=== PATIENT | female | born 1990 | race African-American/Black ===

== ENCOUNTER 2017-05-20 06:50 | Inpatient (IN) | payer OTHER ==
[2017-05-20] MEDS ORDERED: ELECTROLYTE-148 SOLN 500 ML IV ONE (07:24)
[2017-05-20] MEDS ORDERED: CITRIC ACID/SODIUM CITRATE 30 ML UNIT-DOSE CUP PO ONE (07:24)
[2017-05-20] MEDS ORDERED: ELECTROLYTE-148 SOLN 1,000 ML IV SCH (07:30)
--- NOTE | 2017-05-20 07:38 | HP ---
Past Medical History - Primary Care Physician PCP:: Karen Simmons - Admission Chief Complaint: 26 yrs , 39.2/7 weeks, previous c/sx2 , admitted for repeat c/section History of Present Illness: care at [address] [place] [address] , late registrant .No wt gain during , pt states she lost 30 lbs . only 5 visits .pnc. work up : AB Pos , Rubella immune, Hbsag neg, Rpr nr, Hiv neg,! Hr Gtt 99,Sickle neg , GC/CT neg GBS neg . NT screen & AFP not done serial sono for growth were done by [facility], reviewed . History Source: Patient, Medical Record Limitations to Obtaining History: No Limitations - Past Medical History CURATOR OF MANUSCRIPTS: No: Migraine, Seizure Cardiovascular: Yes: HTN (h/o preclempsia in 10/2008 ) Pulmonary: Yes: Asthma (rx inhaler), Pulmonary Embolus (h/o PE during last 06/2014 ,early 1st or 2 nd trimester , she was placed on Lovenox during whole . She had pregn , delivery at [facility]) Gastrointestinal: No: Gastritis, GERD Hepatobiliary: No: Hepatitis B ...: 5 ...Para: 2 ...Term: 1 (07/07/2014 rpeat c/section 8'4' [facility] ,pregn complicated by PE , rx lovenox whole pregn ) ...: 1 (11/14/2008 ,1'7" 28 weeks preclempsia , IUGR, , [place], at [facility] ) ...Spon : 0 ...Induced : 2 ...LMP: 09/02/16 ...EDC by Dates: 06/09/17 ...EDC by Sono: 05/25/17 (39.2 weeks by sono ) Heme/Onc: Yes: Anemia Infectious Disease: No: HIV, STD's Psych: No: Addictions, Anxiety, Bipolar, Depression Endocrine: No: Diabetes Mellitus, Hypothyroidism - Past Surgical History Past Surgical History: Yes: (10/2008, & 06/2014) Hx Myomectomy: No Hx Transabdominal Cerclage: No - Smoking History Smoking history: Never smoked Have you smoked in the past 12 months: No - Alcohol/Substance Use Hx Alcohol Use: No History of Substance Use: reports: None Home Medications - Allergies Allergies/Adverse Reactions: Allergies Allergy/AdvReac Type Severity Reaction Status Date / Time No Known Allergies Allergy Verified 05/20/17 07:49 - Home Medications Home Medications: Ambulatory Orders Albuterol 0.083% Nebulizer Helen [Ventolin 0.083% Nebulizer Soln -] 1 neb NEB Q4H PRN 04/29/17 Albuterol Sulfate Inhaler - [Ventolin Hfa Inhaler -] 1 - 2 inh PO PRN PRN Vit/Iron Fumarate/FA [ Tablet] 1 each PO DAILY 05/20/17 Physical Exam - Maternity Vital Signs: Selected Entries 05/20/17 07:49 Weight 290 lb Constitutional: Yes: Well Nourished, Obese Eyes: Yes: WNL HENT: Yes: WNL, Normocephalic Neck: Yes: WNL Cardiovascular: Yes: WNL, Regular Rate and Rhythm Lungs: Clear to auscultation Breast(s): Yes: WNL - Abdominal Exam/OB Fundal Height: 40 Number of Fetuses: Single Presentation: Vertex Contractions: Yes Regularity: Irregular Intensity: Unaware Monitor Mode: External Heart Rate (range): 130 Heart Rate Location: [facility] Category: I Accelerations: Uniform - Vaginal Exam/OB Vaginal Bleediing: No Speculum Exam: No Dilatation (cm): close Effacement (%): unefface Amniotic Membrane Status: Intact Presentation: Vertex/Position Station: -3 - Physical Exam Musculoskeletal: Yes: WNL Extremities: No: Calf Tenderness Edema: Yes Edema: LLE: 1+, RLE: 1+ Integumentary: Yes: Incision (pfannensteil scar), Tattoos Deep Tendon Reflex Grade: Normal +2 ...Motor Strength: WNL Psychiatric: Yes: WNL, Alert, Oriented Problem List - Problems (1) with 39 completed weeks gestation Code(s): Z3A.39 - 39 WEEKS GESTATION OF (2) Previous section complicating Code(s): O34.219 - MATERNAL CARE FOR UNSP TYPE SCAR FROM PREVIOUS DEL (3) Morbid obesity with BMI of 45.0-49.9, adult Code(s): E66.01 - MORBID (SEVERE) OBESITY DUE TO EXCESS CALORIES Z68.42 - BODY MASS INDEX (BMI) 45.0-49.9, ADULT (4) H/O extrinsic asthma Code(s): Z87.09 - PERSONAL HISTORY OF OTHER DISEASES OF THE RESPIRATORY SYSTEM Assessment/Plan 26 yrs , 39.2 weeks , previous c/s x2 ,Morbid obesty , h/o PE in past, requests repeat c/section
[2017-05-20 08:50] VITALS: BMI 53.0
[2017-05-20] MEDS ORDERED: ENOXAPARIN NA (PORCINE) 40 MG/0.4 ML DISP.SYRIN SQ SCH (10:00)
[2017-05-20 10:58] LABS: URINE MARIJUANA THC NEGATIVE ng/ml (CUTOFF=50)
[2017-05-20] MEDS ORDERED: ONDANSETRON 4 MG/2 ML VIAL IVPB PRN (11:50)
[2017-05-20] MEDS ORDERED: IBUPROFEN 800 MG/8 ML IJ IVPB PRN (12:27)
[2017-05-20] MEDS ORDERED: METHYLERGONOVINE MALEATE 0.2 MG/1 ML AMP IM PRN (12:27)
[2017-05-20] MEDS ORDERED: ceFAZolin 2 GRAM PREMIX BAG IVPB SCH (12:30)
--- NOTE | 2017-05-20 12:43 | PN ---
Delivery - Delivery Section: Repeat, Low Flap Transverse (lysis of adhesions Indication : 39 weeks, previous c/section x2 , morbid obesiity) Type of Anesthesia: Spinal Episiotomy/Laceration: None EBL (cc): 650 (ovalle output 200 ml pastora color ) Delivery, Single - Stages of Labor Date of Delivery: 05/20/17 Time of Delivery: 11:26 Time Placenta Delivered: 11:27 Placenta: Yes: Manual Removal, Uterine Exploration - Condition of Personal Injury Law Specialist/Plastic Sheets Finishing Supervisor Present: Yes Name: Nila Fregoso Gender: Male Weight: 7 lb 13 oz Position: Left, OT Total Hours ROM (Hrs/Mins): 0/2 - 1 Minute Total Score: 9 5 Minutes Total Score: 9 - [place] Feeding Plan Initial Plan: Elected not to breastfeed exclusively throughout hospitalization Remarks - Remarks Remarks: 26 yrs , 39 weeks iup, , previousc/sx2 admitted for repeat c/s PNC at [address] [place] [address] gbs neg Intraop adhesions on rt side of uterus to right lateral abdominal wall is noted it could not be seprated No peritoneum layer found, lysisi adhesions were done
--- NOTE | 2017-05-20 12:49 | OP ---
Operative Note - Note: Operative Date: 05/20/17 Pre-Operative Diagnosis: 39 weeks, previous c/section x2, morbid obesity Operation: repeat LFTC/section Findings: 11.26 am , baby boy, vx LOT , 9/9 , Wt 7'11" tubes & ovaries could not be inspected rt side utreus adhernt to abd wall firmly, no lysis was done . Dr Fregoso present in OR Post-Operative Diagnosis: Other (uteroabd wall adhesions) Surgeon: Karen Simmons Student Driving Instructor: Marcos Yao Anesthesiologist/RETAIL PHARMACY MANAGER: Dayanara Gonzalez Anesthesia: Spinal Specimens Removed: placenta. cord blood Estimated Blood Loss (mls): 650 Drains, Volume Out (mls): 200 Fluid Volume Replaced (mls): 1,800 (2 gm iv ancef preop given )
[2017-05-20] MEDS: ACETAMINOPHEN 1000 MG/100 ML VIAL (NON FORMULARY) IVPB PRN (13:00)
[2017-05-20] MEDS ORDERED: CEFAZOLIN 2 GM/D5W 50 ML IVPB SCH (13:00)
[2017-05-20] MEDS: ENOXAPARIN NA (PORCINE) 40 MG/0.4 ML DISP.SYRIN SQ SCH (17:55)
[2017-05-20] MEDS: CEFAZOLIN 2 GM/D5W 50 ML IVPB SCH (19:33)
[2017-05-20] MEDS: OXYTOCIN 20 UNITS in 0.9% NS 1,000 ML IV SCH (19:34)
[2017-05-20] MEDS ORDERED: SENNOSIDES/DOCUSATE COMBO (SENNA PLUS) TABLET (UD) PO PRN (22:00)
[2017-05-21] MEDS: CEFAZOLIN 2 GM/D5W 50 ML IVPB SCH ×2 (03:19→10:43)
[2017-05-21] MEDS: OXYTOCIN 20 UNITS in 0.9% NS 1,000 ML IV SCH (04:07)
--- NOTE | 2017-05-21 05:26 | PN ---
Post Progress Note - Subjective Subjective: resting in bed, minimal [pain Type of Delivery: Repeat C/S Vital Signs: Vital Signs Temperature 99 F 05/21/17 02:22 Pulse Rate 87 05/21/17 02:22 Respiratory Rate 19 05/21/17 04:00 Blood Pressure 119/68 05/21/17 02:22 O2 Sat by Pulse Oximetry (%) 98 05/21/17 02:00 Breast Exam: Yes: Soft Uterus: Yes: Fundus Firm Abdomen/GI: Yes: Abdomen soft Lochia: Yes: Rubra Lochia, amount: Small Extremities: Yes: Calves non-tender Perineum: Yes: Intact Activity: Ambulating Assessment/Plan oob reg diet pain meds check labs today
[2017-05-21] MEDS: ACETAMINOPHEN 1000 MG/100 ML VIAL (NON FORMULARY) IVPB PRN (05:51)
[2017-05-21] MEDS: ENOXAPARIN NA (PORCINE) 40 MG/0.4 ML DISP.SYRIN SQ SCH ×2 (06:05→17:17)
--- NOTE | 2017-05-21 07:06 | OP ---
DATE OF OPERATION: 05/20/2017 PREOPERATIVE DIAGNOSIS: A 39-week , previous section x2, morbid obesity. OPERATION DONE: A repeat low flap transverse section. POSTOPERATIVE DIAGNOSIS: A 39-week , previous section x2, morbid obesity, uteroabdominal wall adhesions on the right side. SURGEON: Karen Simmons MD SPECIAL EFFECTS PERSON SURGEON: DAYANA Perrin ANESTHESIOLOGIST: Dayanara Gonzalez MD ANESTHESIA: Spinal. FINDINGS: This is a 26-year-old 5 para 1-1-2-2 at 39 weeks . She had previous C-sections x2 done at [facility], and she has history of a PE during her last . Patient not in labor. [id number] pounds, BMI 53. PROCEDURE: Abdomen was shaved, prepped. Hardy catheter was placed. She was taken to the operating room table. Spinal anesthesia was given. She was placed in supine positon. Abdomen was painted and draped in usual manner. Before abdominal preparation, panniculus of abdomen was pulled back upwards with the tape to facilitate the surgery. The abdomen was prepped, then draped. Pfannenstiel incision was made through previous scar. The skin and subcutaneous tissue were entered. Anterior rectus sheath was incised transversely. Bleeding points were clamped. The rectus muscle was from the rectus sheath. Parietal peritoneum could not be identified, and there were adhesions through the uterine cavity. The abdominal cavity was entered by lysing the adhesions on the right side of the abdominal wall and the uterus about from the mid portion to the lower segment, was adherent and complete to the right abdominal wall very thick adhesions. So, I could not separate it. The lower uterine segment was identified. There was no definite bladder peritoneum , so, bladder was pushed down, and the lower uterine segment was incised transversely. The amniotic fluid was clear. The baby was delivered from LOT position, baby boy at 11:26 a.m., was 9, 9. Babys weight was 7 pounds 11 ounces. Cord was clamped, cut, and baby was handed over to Dr. Kohler, the wardrobe custodian present in the room. Placenta was removed completely with the membranes. Then, uterine cavity was cleaned, and the uterine incision was closed in 2 layers. The first layer was closed with a Biosyn 0 suture, continuous locking sutures were taken, second layer was a Biosyn 0 suture, continuous intermittently locking sutures were taken. Hemostasis was verified. Because of the adhesions, both the size of tubes and ovaries could not be identified. Also, before entering the uterine incision to ensure the good exposure, the rectus muscle on both sides was resected laterally. So, now, since parietal peritoneum was not identified, the rectus muscle was reapproximated together with Biosyn 0 suture, and the abdominal cavity was closed. Before that, the sponge, instrument, and needle counts were correct. Below the rectus sheath, hemostasis was checked. Anterior rectus sheath was closed with Vicryl suture. Hemostasis was checked. The subcutaneous tissue was approximated with Biosyn 0 suture. Hemostasis was checked, and then, the skin was approximated with jessica. Pressure dressing was given. Blood clots were removed from the vagina. Estimated blood loss was 650 mL. Urine output was 200 mL and it was clear and pastora colored. She received 2 g of IV Ancef prior to the incision. She was sent to the recovery room in stable condition. Since she has history of a PE, she will be given Lovenox 40 mg p.o. b.i.d. starting at 6:00 p.m. Estefania [id number] MTDD
[2017-05-21 07:57] LABS: BASOPHIL 0.7 % (0-2.0); EOSINOPHIL 1.1 % (0-4.5); MCH 25.3 pg (25.7-33.7); MCHC 32.9 g/dl (32.0-36.0); MEAN CELL VOLUME 76.9 fl (80-96); MEAN PLT VOLUME 9.3 fl (7.5-11.1); NEUTROPHILS 71.9 % (42.8-82.8); PLATELET COUNT 187 K/MM3 (134-434); RDW 14.9 % (11.6-15.6); WHITE BLOOD COUNT 12.8 K/mm3 (4.0-10.0)
--- NOTE | 2017-05-21 09:16 | PN ---
Progress Note, Physician Chief Complaint: Pt. ovalle out, has not voided yet, no BURNS. Pain controlled. - Current Medication List Current Medications: Active Medications Bisacodyl (Dulcolax Suppository -) 10 mg RC PRN PRN PRN Reason: CONSTIPATION Diphenhydramine HCl (Benadryl Injection -) 25 mg IVPUSH Q4H PRN PRN Reason: Pruritis Last Admin: 05/20/17 22:00 Dose: 25 mg Diphtheria/Tetanus/Acell Pertussis (Boostrix -) 0.5 ml IM .ONCE ONE Stop: 05/21/17 10:01 Enoxaparin Sodium (Lovenox -) 40 mg SQ Q12H [facility] Last Admin: 05/21/17 06:05 Dose: 40 mg Ferrous Sulfate (Feosol -) 325 mg PO BID [facility] Oxytocin/Sodium Chloride (Normal Saline+20 Units Oxytocin -) 1,000 mls @ 125 mls/hr IV ASDIR [facility] Last Admin: 05/21/17 04:07 Dose: 125 mls/hr Cefazolin Sodium/Dextrose (Ancef 2 Gm Premixed Ivpb -) 50 mls @ 100 mls/hr IVPB Q8H XU PRN Reason: Protocol Stop: 05/21/17 18:59 Last Admin: 05/21/17 03:19 Dose: 100 mls/hr Ibuprofen (Motrin -) 600 mg PO Q4H PRN PRN Reason: PAIN Ibuprofen (Caldolor Injection -) 800 mg IVPB Q8H PRN PRN Reason: PAIN OR FEVER Methylergonovine Maleate (Methergine Injection -) 0.2 mg IM Q4H PRN PRN Reason: Excessive Bleeding (L&D) Oxycodone HCl (Roxicodone -) 5 mg PO Q4H PRN PRN Reason: PAIN LEVEL 1-5 Oxycodone HCl (Roxicodone -) 10 mg PO Q4H PRN PRN Reason: PAIN LEVEL 6-10 Multivit/Folic Acid/Iron ( Vitamins (Sjr) -) 1 tab PO DAILY [facility] Senna/Docusate Sodium (Pericolace -) 2 tablet PO HS PRN PRN Reason: CONSTIPATION Simethicone (Mylicon -) 80 mg PO Q4H PRN PRN Reason: GAS - Objective Vital Signs: Vital Signs Temperature 99.0 F 05/21/17 06:09 Pulse Rate 88 05/21/17 06:09 Respiratory Rate 18 05/21/17 06:09 Blood Pressure 120/66 05/21/17 06:09 O2 Sat by Pulse Oximetry (%) 98 05/21/17 05:28 Constitutional: Yes: Well Nourished, No Distress, Calm Musculoskeletal: Yes: WNL Neurological: Yes: WNL, Alert, Oriented ...Motor Strength: WNL Labs: CBC, BMP 05/21/17 07:30 Assessment/Plan POD#1 s/p repeat under spinal with DM. Doing well. D/C from anesthesia care once she voids.
[2017-05-21] MEDS ORDERED: DIPHTH,PERTUSS(ACELL),TET 0.5 ML DISP.SYRIN IM ONE (10:00)
[2017-05-21] MEDS: PRENATAL VITAMINS W/ FOLIC ACID TABLET (FP) PO SCH (10:50)
[2017-05-21] MEDS ORDERED: BISACODYL 10 MG SUPP.RECT RC PRN (12:27)
[2017-05-21] MEDS: IBUPROFEN 600 MG TABLET (FP) PO PRN (12:59)
[2017-05-21] MEDS: SIMETHICONE 80 MG TAB.CHEW (FP) PO PRN ×3 (13:01→23:24)
[2017-05-21] MEDS: ACETAMINOPHEN 325 MG TABLET (FP) PO PRN ×3 (13:01→23:24)
[2017-05-21] MEDS: oxyCODONE HCL 5 MG TABLET PO PRN ×3 (14:02→23:24)
[2017-05-21] MEDS: FERROUS SO4 325 MG TABLET (FP) PO SCH (22:05)
[2017-05-22] MEDS: SIMETHICONE 80 MG TAB.CHEW (FP) PO PRN ×5 (03:15→23:56)
[2017-05-22] MEDS: oxyCODONE HCL 5 MG TABLET PO PRN ×4 (03:15→21:02)
[2017-05-22] MEDS: ACETAMINOPHEN 325 MG TABLET (FP) PO PRN ×5 (03:15→23:57)
[2017-05-22] MEDS: ENOXAPARIN NA (PORCINE) 40 MG/0.4 ML DISP.SYRIN SQ SCH ×2 (06:13→18:46)
--- NOTE | 2017-05-22 07:36 | PN ---
Post Progress Note - Subjective Subjective: c/o gaseous discomfort pain scale 6/10 Post Day: 2 Type of Delivery: Repeat C/S Vital Signs: Vital Signs Temperature 98.2 F 05/21/17 22:00 Pulse Rate 103 H 05/21/17 22:00 Respiratory Rate 20 05/21/17 22:00 Blood Pressure 115/66 05/21/17 22:00 O2 Sat by Pulse Oximetry (%) 98 05/21/17 05:28 Breast Exam: Yes: Soft, Other (BF ). No: Engorged Uterus: Yes: Fundus Firm, Fundus below umbilicus Incision: Yes: Dressing dry and intact (robbin changed ). No: Redness, Oozing Abdomen/GI: Yes: Abdomen soft, Abdominal Distention (obese abdomen . bsactive , no cva tenderness ), Passing flatus (bm not done ), Tolerating PO (diet ). No: Tender Lochia: Yes: Rubra Lochia, amount: Moderate Extremities: Yes: Calves non-tender Perineum: Yes: Intact Activity: Ambulating - Labs Labs: CBC WBC 12.8 K/mm3 (4.0-10.0) H 05/21/17 07:30 RBC 3.81 M/mm3 (3.60-5.2) 05/21/17 07:30 Hgb 9.6 GM/dL (10.7-15.3) L D 05/21/17 07:30 Hct 29.3 % (32.4-45.2) L 05/21/17 07:30 MCV 76.9 fl (80-96) L 05/21/17 07:30 MCHC 32.9 g/dl (32.0-36.0) 05/21/17 07:30 RDW 14.9 % (11.6-15.6) 05/21/17 07:30 Plt Count 187 K/MM3 (134-434) 05/21/17 07:30 MPV 9.3 fl (7.5-11.1) 05/21/17 07:30 Neutrophils % 71.9 % (42.8-82.8) 05/21/17 07:30 Lymphocytes % 19.4 % (8-40) 05/21/17 07:30 Monocytes % 6.9 % (3.8-10.2) 05/21/17 07:30 Eosinophils % 1.1 % (0-4.5) 05/21/17 07:30 Basophils % 0.7 % (0-2.0) 05/21/17 07:30 Other Findings, Remarks: Rs cta , no wheezing Problem List - Problems (1) with 39 completed weeks gestation Code(s): Z3A.39 - 39 WEEKS GESTATION OF (2) Previous section complicating Code(s): O34.219 - MATERNAL CARE FOR UNSP TYPE SCAR FROM PREVIOUS DEL (3) Morbid obesity with BMI of 45.0-49.9, adult Code(s): E66.01 - MORBID (SEVERE) OBESITY DUE TO EXCESS CALORIES Z68.42 - BODY MASS INDEX (BMI) 45.0-49.9, ADULT (4) H/O extrinsic asthma Code(s): Z87.09 - PERSONAL HISTORY OF OTHER DISEASES OF THE RESPIRATORY SYSTEM Assessment/Plan anemia , pos t c/section, morbid obesity plan pt requests for discharge tomorrow encourage ambulation, po fluids, deep breathing dulcolax suppository pr repeat today.
[2017-05-22] MEDS: FERROUS SO4 325 MG TABLET (FP) PO SCH ×3 (09:36→21:23)
[2017-05-22] MEDS: PRENATAL VITAMINS W/ FOLIC ACID TABLET (FP) PO SCH (09:36)
[2017-05-22] MEDS: IBUPROFEN 600 MG TABLET (FP) PO PRN ×3 (13:42→23:56)
[2017-05-23] MEDS: SIMETHICONE 80 MG TAB.CHEW (FP) PO PRN ×2 (04:39→08:43)
[2017-05-23] MEDS: IBUPROFEN 600 MG TABLET (FP) PO PRN ×2 (04:40→08:44)
[2017-05-23] MEDS: ACETAMINOPHEN 325 MG TABLET (FP) PO PRN ×2 (04:40→08:44)
[2017-05-23] MEDS: ENOXAPARIN NA (PORCINE) 40 MG/0.4 ML DISP.SYRIN SQ SCH (05:55)
[2017-05-23 07:48] LABS: BASOPHIL 0.7 % (0-2.0); EOSINOPHIL 7.9 % (0-4.5); MCH 25.5 pg (25.7-33.7); MCHC 33.1 g/dl (32.0-36.0); MEAN CELL VOLUME 77.1 fl (80-96); MEAN PLT VOLUME 9.8 fl (7.5-11.1); NEUTROPHILS 64.7 % (42.8-82.8); PLATELET COUNT 198 K/MM3 (134-434); RDW 15.3 % (11.6-15.6); WHITE BLOOD COUNT 10.1 K/mm3 (4.0-10.0)
[2017-05-23] MEDS: oxyCODONE HCL 5 MG TABLET PO PRN (08:43)
[2017-05-23 09:01] VITALS: BP 118/42; PULSE 91; TEMP 98.2
[2017-05-23] MEDS: PRENATAL VITAMINS W/ FOLIC ACID TABLET (FP) PO SCH (09:08)
[2017-05-23] MEDS: FERROUS SO4 325 MG TABLET (FP) PO SCH (09:08)
--- NOTE | 2017-05-23 09:46 | DS ---
Physical Exam-GREETING CARD WRITER Vital Signs: Vital Signs Temperature 98.2 F 05/23/17 08:59 Pulse Rate 91 H 05/23/17 08:59 Respiratory Rate 20 05/23/17 08:59 Blood Pressure 118/42 05/23/17 08:59 O2 Sat by Pulse Oximetry (%) 98 05/21/17 05:28 Constitutional: Yes: Well Nourished Eyes: Yes: Conjunctiva Clear HENT: Yes: Atraumatic Neck: Yes: Supple, Trachea Midline Cardiovascular: Yes: Regular Rate and Rhythm Respiratory: Yes: Regular, CTA Bilaterally Gastrointestinal: Yes: Normal Bowel Sounds ...Rectal Exam: Yes: WNL Renal/: Yes: WNL Pelvis: Yes: WNL External Genitalia: Yes: Normal Vaginal Exam: Yes: Normal Cervix: Yes: Normal Uterus: Yes: Firm Wound/Incision: Yes: [place] Intact Neurological: Yes: Alert, Oriented ...Motor Strength: WNL Psychiatric: Yes: Alert, Oriented Labs: CBC, BMP 05/23/17 06:00 Delivery - Delivery Section: Repeat, Low Flap Transverse (lysis of adhesions Indication : 39 weeks, previous c/section x2 , morbid obesiity) Type of Anesthesia: Spinal Episiotomy/Laceration: None EBL (cc): 650 (ovalle output 200 ml pastora color ) Delivery, Single - Stages of Labor Date of Delivery: 05/20/17 Time of Delivery: 11:26 Time Placenta Delivered: 11:27 Placenta: Yes: Manual Removal, Uterine Exploration - Condition of Infant Drug Abuse Counselor/Snow Blower Present: Yes Name: Nila Fregoso Gender: Male Weight: 7 lb 13 oz Position: Left, OT Total Hours ROM (Hrs/Mins): 0/2 - 1 Minute Total Score: 9 5 Minutes Total Score: 9 - Feeding Plan Initial Plan: Elected not to breastfeed exclusively throughout hospitalization Discharge Summary Reason For Visit: Current Active Problems Anemia (Acute) Delivery by (planned) section occurring after 37 completed weeks of gestation but before 39 completed weeks gestation due to (spontaneous) onset of labor, with mention of complication (Acute) H/O extrinsic asthma (Acute) Morbid obesity with BMI of 45.0-49.9, adult (Acute) with 39 completed weeks gestation (Acute) Previous section complicating (Acute) Procedures: Principal: Repeat Low Transverse Hospital Course: Routine Post op care Condition: Stable - Instructions Diet, Activity, Other Instructions: Post Instructions DIET: Continue good diet high in protein, calcium, and iron rich foods. Drink at least eight (8) glasses of water daily in addition to other fluids. ct LoCarb/Low Calorie Diet MEDICATIONS: Continue vitamins and iron as previously directed. Motrin and Tylenol may be taken for minor discomfort. ACTIVITY: Mild to moderate exercise may be started in two (2) weeks. Take frequent rest periods. Resume normal activity after six (6) week check up. WOUND CARE OF OPERATIVE SITE: Continue use of perineal bottle until vaginal discharge stops. Keep area clean. Shower daily. Keep abdominal wound dry. Report any drainage or redness to physician. Tub baths, tampons and douches are not permitted for [address] Breast feeding & or Bottle feeding BREAST CARE: (For those that are not breast feeding): If engorgement occurs: Wear tight fitting bra. Take Tylenol or Motrin for pain. Apply cold packs (ice in bags to each breast ) FAMILY PLANNING: There are many control alternatives to pursue and they should be discussed at your first office visit. You may resume sexual activity after your six (6) week check up. (Remember, breast feeding is not a contraceptive) NEXT PHYSICIAN APPOINTMENT: Be certain to call for a one (1) week appointment, unless otherwise directed. [facility] Saturday05/28/17 for jessica removal with Dr Simmons Call Clinic or got to Emergency Dept if you have any of the following: Heavy vaginal bleeding Painful urination Leg pain Unusual odor noted to vaginal bleeding High fever Red streaking noted on breast call [facility] for appointment. [phone] Referrals: Karen Simmons MD [Staff Physician] - Disposition: HOME - Home Medications Comprehensive Discharge Medication List: Ambulatory Orders Albuterol 0.083% Nebulizer Helen [Ventolin 0.083% Nebulizer Soln -] 1 neb NEB Q4H PRN 04/29/17 Albuterol Sulfate Inhaler - [Ventolin HFA Inhaler -] 1 - 2 inh PO PRN PRN Vit/Iron Fumarate/FA [ Tablet] 1 each PO DAILY 05/20/17 Acetaminophen [Tylenol .Regular Strength -] 500 mg PO Q4H PRN #30 tablet Ferrous Sulfate [Feosol] 325 mg PO BID #60 tab 05/22/17 Ibuprofen [Motrin -] 600 mg PO Q4H PRN #30 tablet 05/22/17 Vitamins (Sjr) - 1 tab PO DAILY tablet 05/22/17
--- NOTE | 2017-05-27 13:39 | PATH ---
Surgical Pathology Report Patient Name: ESTEBAN WOLF Med. Rec. #: [id number] /Age/Gender: 1990 (Age: 26) / F Account: [id number] Location: [facility] OBS/TRANSFER PROFESSOR Taken: 05/20/2017 Received: 05/22/2017 Reported: 05/27/2017 Physicians: Karen Simmons M.D. Specimen(s) Received PLACENTA Clinical History , 39.2 weeks, c/section x2 Repeat c/section Final Diagnosis PLACENTA, DELIVERY: FOCALLY DISRUPTED THIRD TRIMESTER PLACENTA WITH MODERATE PREVILLOUS, PERIVILLOUS, AND PRECHORIONIC FIBRIN DEPOSITION, FOCAL CALCIFICATIONS, THREE VESSEL UMBILICAL CORD, AND PLACENTAL MEMBRANES FOCAL EARLY ACUTE CHORIOAMNIONITIS. Electronically Signed Robert Sanches M.D. Gross Description The specimen is received fresh, labeled "placenta" and is a 528 gram, 18.0 x 16.5 x 3.0 cm placenta with attached membranes and umbilical cord. The attached membranes are brennan, translucent with focal opacities and insert marginally. The umbilical cord measures 34 cm in length and averages 1.2 cm in diameter. The cord inserts eccentrically, 5.5 cm to the nearest margin. No true knots or strictures are identified. Cut surface of the umbilical cord reveals 3 vessels. The surface is ibarra-blue with moderate fibrin deposition and appropriate caliber vessels. The maternal surface is red-brown with focal defects. Sectioning reveals red-brown, spongy parenchyma. No focal lesions are identified. Logistics Planner sections are submitted in three cassettes as follows: 1- membrane rolls and umbilical cord; 2-3- full thickness sections of placenta. /05/24/201705/24/2017
== END 2017-05-23 12:20 | disposition home or self-care (01) | DRG 540 ==
LOC: JLDR 06:50 → J3W 14:22
PROVIDERS: ADMIT Obstetrics & Gynecology; ATTEND Obstetrics & Gynecology
PROC: 10D00Z1 Extraction of Products of Conception, Low, Open Approach (ICD-10-PCS; principal; 2017-05-20)
DX: O34.211 Maternal care for low transverse scar from previous cesarean delivery (principal); O99.214 Obesity complicating childbirth; E66.01 Morbid (severe) obesity due to excess calories; Z68.43 Body mass index [BMI] 50.0-59.9, adult; O99.02 Anemia complicating childbirth; D64.9 Anemia, unspecified; O75.89 Other specified complications of labor and delivery; J45.909 Unspecified asthma, uncomplicated; N73.6 Female pelvic peritoneal adhesions (postinfective); Z3A.39 39 weeks gestation of pregnancy; Z37.0 Single live birth
CPT/HCPCS: 36415; 80307; 85025; 88307-TC; 90715